=== PATIENT | female | born 1990 | race Caucasian/White ===

== ENCOUNTER 2020-04-16 16:14 | Emergency (ER) | payer MEDICAID ==
[~2020-04-16] VITALS: Ht 172.7 cm; Wt 56.7 kg
--- NOTE | 2020-04-16 16:39 | NUR ---
ED Nurse Note: urine sent to lab
--- NOTE | 2020-04-16 17:30 | NUR ---
ED Nurse Note:pt. came with possible UTI symptoms, exam was done by ER PA
[2020-04-16 17:38] LABS: APPEARANCE,URINE CLEAR; BILIRUBIN, URINE NEGATIVE (NEGATIVE); GLUCOSE, URINE (UA) NEGATIVE (NEGATIVE); KETONES,URINE 1+ (NEGATIVE); LEUKOCYTE ESTERASE ,URINE 1+ (NEGATIVE); NITRITE,URINE NEGATIVE (NEGATIVE); PH,URINE 5 (4.5-8.0); PROTEIN,URINE NEGATIVE (NEGATIVE); UROBILINOGEN,URINE NORMAL MG/DL (0.0-1.0)
[2020-04-16 17:40] LABS: COLOR,URINE YELLOW
[2020-04-16 18:06] VITALS: BP 124/79
--- NOTE | 2020-04-16 18:08 | Emergency Room Report ---
History of Present Illness General Chief Complaint: Female Urogenital Problems Source: Patient Present Illness HPI 29-year-old female with no signal past medical history here expressing concerns about a possible STD. Patient reports that she was last sexually active 2 months ago and started having blisters in the vaginal area 2 weeks ago. Patient scared that it might be herpes. Patient also shaves the area. Also reports that she felt some scarification at the crease of her lips today and got very anxious. Denies any vaginal discharge and urinary symptoms. Denies . Denies any burning sensation in the area of the lesion. Denies any tingling prior to the appearance of the blister. No grouped vesicular rash on erythematous base noted appears to be secondary to contact eczema with infection on top most likely secondary to staph infection. 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 COVID-19 Screening: Negative COVID-19 COVID-19 Testing Source: 2 weeks ago Patient History Past Medical History: see triage record Past Surgical History: none Pertinent Family History: none Last Menstrual Period: last week Now: No Immunizations: UTD Reviewed Nursing Documentation: PMH: Agreed; PSxH: Agreed Nursing Documentation-PMH Past Medical History: No Stated History Review of Systems All Other Systems: negative except mentioned in HPI Physical Exam Vital Signs Date Time Temp Pulse Resp B/P (MAP) Pulse Ox O2 Delivery O2 Flow Rate FiO2 04/16/20 16:28 98.4 109 20 124/79 (94) 99 Room Air Sp02 EP Interpretation: reviewed, normal General Appearance: no apparent distress, alert, GCS 15, non-toxic Head: normocephalic, atraumatic Eyes: bilateral eye normal inspection, bilateral eye PERRL ENT: hearing grossly normal, normal pharynx, no angioedema, normal voice Neck: full range of motion, supple/symm/no masses Respiratory: chest non-tender, lungs clear, normal breath sounds, speaking full sentences Cardiovascular #1: regular rate, rhythm, no edema Gastrointestinal: normal bowel sounds, non tender, soft, non-distended, no guarding, no rebound Rectal: deferred Genitourinary: no CVA tenderness, other - Contact eczema noted around vaginal labia majora and skin cut noted appears to be secondary to either razor cut or due to scratching with superimposed staph infection. Musculoskeletal: back normal Neurologic: alert, motor strength/tone normal, oriented x3, sensory intact, responsive, speech normal Psychiatric: judgement/insight normal, memory normal, mood/affect normal, no suicidal/homicidal ideation Skin: rash - Impetigo crease of left leg Lymphatic: no adenopathy Medical Decision Making PA Attestation ALL Diagnosis and treatment plan reviewed and discussed with my supervising physician Dr. Shah Diagnostic Impression: Primary Impression: UTI (urinary tract infection) Additional Impressions: Skin infection Blister (nonthermal) of vagina and vulva, initial encounter Impetigo any site ER Course 29-year-old female with no signal past medical history here expressing concerns about a possible STD. Patient reports that she was last sexually active 2 months ago and started having blisters in the vaginal area 2 weeks ago. Patient scared that it might be herpes. Patient also shaves the area. Also reports that she felt some scarification at the crease of her lips today and got very anxious. Denies any vaginal discharge and urinary symptoms. Denies . Denies any burning sensation in the area of the lesion. Denies any tingling prior to the appearance of the blister. No grouped vesicular rash on erythematous base noted appears to be secondary to contact eczema with infection on top most likely secondary to staph infection. Ddx considered but are not limited to: UTI, herpes, staph infection of the vaginal canal, Vital signs: are WNL, pt. is afebrile H&PE are most consistent with: Impetigo of the mouth, skin infection secondary to superimposed staph infection vaginal area, possible herpes infection, UTI ORDERS: UA, urine cx, urine , Bactrim DS to cover both staph infection and UTI, acyclovir per patient request to be covered for possible herpes, mupirocin ointment ED INTERVENTIONS: None required at this time. DISCHARGE: At this time pt. is stable for d/c to home. Will provide printed patient care instructions, and any necessary prescriptions. Care plan and follow up instructions have been discussed with the patient prior to discharge. Gave a list of STD clinics medication as directed, follow-up primary care provider, if worsening symptoms return to the emergency room. Patient is aware that STDs are not routinely tested here at the ED and patient agrees with the treatment above Last Vital Signs Date Time Temp Pulse Resp B/P (MAP) Pulse Ox O2 Delivery O2 Flow Rate FiO2 04/16/20 16:28 98.4 109 20 124/79 (94) 99 Room Air Disposition: HOME, SELF-CARE Condition: Stable Scripts Trimethoprim/Sulfamethoxazole 160/800* (BACTRIM DS TABLET*) 1 Each Tablet 1 TAB ORAL TWICE A DAY for 7 Days, #14 TAB Prov: Jany Bazan 04/16/20 Mupirocin* (MUPIROCIN*) 22 Gm Oint...g. 1 APPLIC TOPIC THREE TIMES A DAY, #22 GM Prov: Jany Bazan 04/16/20 Acyclovir* (ACYCLOVIR*) 400 Mg Tablet 400 MG ORAL THREE TIMES A DAY for 5 Days, #15 TAB Prov: Jany Bazan 04/16/20 Patient Instructions: Urinary Tract Infection Additional Instructions: Take medication as directed, follow-up primary care provider, follow-up with STD clinics, worsening symptoms return to the emergency Jany Bazan Apr 16, 2020 18:08
[2020-04-16] MEDS ORDERED: ACYCLOVIR400 MG ORAL (18:12)
[2020-04-16] MEDS ORDERED: BACTRIM DS TAB1 EAC1 ORAL (18:12)
[2020-04-16] MEDS ORDERED: MUPIROCIN22 GM TOPIC (18:12)
[2020-04-16 18:30] VITALS: BP 124/79
--- NOTE | 2020-04-16 18:30 | NUR ---
ED Nurse Note: Pt cleared by health care Provider for discharge. DC instructions/prescription was given and explained to pt and verbalized understanding of teachings. All medical deviecs such as ID band removed. Pt is AAO x4, ambulatory and left with all personal belongings.
== END 2020-04-16 18:30 | disposition home or self-care (01) ==
LOC: EMR 17:06
DX: S30.824A Blister (nonthermal) of vagina and vulva, initial encounter (principal); X58.XXXA Exposure to other specified factors, initial encounter; Y92.9 Unspecified place or not applicable; N39.0 Urinary tract infection, site not specified; L08.9 Local infection of the skin and subcutaneous tissue, unspecified; L01.00 Impetigo, unspecified; L25.9 Unspecified contact dermatitis, unspecified cause
CPT/HCPCS: 81003; 81025; Z7502; 99282

== ENCOUNTER 2020-04-26 13:25 | Emergency (ER) | payer MEDICAID, OTHER ==
[~2020-04-26] VITALS: Ht 172.7 cm; Wt 56.7 kg
[~2020-04-26 13:25] MED LIST: ACYCLOVIR400 MG ORAL; BACTRIM DS TAB1 EAC1 ORAL; MUPIROCIN22 GM TOPIC
[2020-04-26 13:36] VITALS: BP 104/65
--- NOTE | 2020-04-26 14:03 | Emergency Room Report ---
History of Present Illness General Chief Complaint: Allergic Reaction Source: Patient Present Illness HPI 29-year-old female presents to the emergency department complaining of nonpainful, mildly itchy rash that also has a tingling sensation generalized over her body x3 days. She also noted or swollen tender lymph nodes in the neck, occipital and groin area. Pt. denies fevers or chills. Denies lesions/rashes elsewhere on the body. Denies new medications or body washes or creams. Denies swelling of the lips, tongue , throat or airway. Denies wheezing, or shortness of breath. Denies recent travel, recent illness or ill contacts. denies blisters, oral lesions, or sloughing of the skin. She reports familial hx of Lupus. She also reports that recently she believes she had a herpes outbreak that she is still awaiting her results for. She reports small cold sore on the corner of her mouth that resolved. Pt. denies significant pmhx otherwise. 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 COVID-19 Screening: Negative COVID-19 COVID-19 Testing Source: Last , [facility] Patient History Past Medical History: see triage record Past Surgical History: none Pertinent Family History: none Now: No Reviewed Nursing Documentation: PMH: Agreed; PSxH: Agreed Nursing Documentation-PMH Past Medical History: No Stated History Review of Systems All Other Systems: negative except mentioned in HPI Physical Exam Vital Signs Date Time Temp Pulse Resp B/P (MAP) Pulse Ox O2 Delivery O2 Flow Rate FiO2 04/26/20 13:29 97.5 95 18 104/65 (78) 100 Room Air Sp02 EP Interpretation: reviewed, normal General Appearance: no apparent distress, alert, GCS 15, non-toxic Head: normocephalic, atraumatic Eyes: bilateral eye normal inspection, bilateral eye PERRL ENT: hearing grossly normal, normal voice, other - no oral lesions Neck: full range of motion, other - no stridor Respiratory: chest non-tender, lungs clear, normal breath sounds, speaking full sentences Cardiovascular #1: regular rate, rhythm, normal capillary refill Musculoskeletal: back normal, normal range of motion, gait/station normal, non- tender Neurologic: alert, motor strength/tone normal, oriented x3, sensory intact, responsive, speech normal Psychiatric: judgement/insight normal Skin: rash - diffuse rash consisting of erythematous papules that yeimi. including face. Not lesions on palms or soles.No blisters or vesicles. No wheezing, or stridor. Lymphatic: other - bilateral occipital and cervical LAD Medical Decision Making PA Attestation Dr. Gar is my supervising Physician whom patient management has been discussed with. Diagnostic Impression: Primary Impression: Rash and nonspecific skin eruption ER Course 29-year-old female presents to the emergency department complaining of nonpainful, mildly itchy rash that also has a tingling sensation generalized over her body x3 days. She also noted or swollen tender lymph nodes in the neck, occipital and groin area. Pt. denies fevers or chills. Denies lesions/rashes elsewhere on the body. Denies new medications or body washes or creams. Denies swelling of the lips, tongue , throat or airway. Denies wheezing, or shortness of breath. Denies recent travel, recent illness or ill contacts. denies blisters, oral lesions, or sloughing of the skin. She reports familial hx of Lupus. She also reports that recently she believes she had a herpes outbreak that she is still awaiting her results for. She reports small cold sore on the corner of her mouth that resolved. Pt. denies significant pmhx otherwise. Ddx considered but are not limited to cellulitis, scabies, shingles, varicella, dermatitis, urticaria, eczema, tinea, viral exanthem, SJS Vital signs: are WNL, pt. is afebrile H&PE are most consistent with diffuse rash consisting of erythematous papules that yeimi. including face. Not lesions on palms or soles.No blisters or vesicles. No wheezing, or stridor. No evidence of acute impending airway from eyes or anaphylaxis. ORDERS: none required at this time, the diagnosis is clinical ED INTERVENTIONS: None required at this time. I discussed with this patient conservative treatment in addition to project management director and java software architect follow-up as well as dermatology. Discussed with patient to return immediately to the emergency department with any respiratory symptoms such as wheezing, cough, swelling of the lips, tongue or throat. DISCHARGE: At this time pt. is stable for d/c to home. Will provide printed patient care instructions, and any necessary prescriptions. Care plan and follow up instructions have been discussed with the patient prior to discharge. Last Vital Signs Date Time Temp Pulse Resp B/P (MAP) Pulse Ox O2 Delivery O2 Flow Rate FiO2 04/26/20 13:36 97.5 95 18 104/65 100 Room Air Disposition: HOME, SELF-CARE Condition: Stable Referrals: Marina BROCK,REFERRING (PCP) Patient Instructions: Allergies, Rash Additional Instructions: Take medications as directed. Do not drink alcohol, drive, or operate heavy machinery while taking Benadryl as this may cause drowsiness. Follow up with a Primary Care Provider in 3-5 days, even if your symptoms have resolved. Recommend DERMATOLOGY, EMERGENCY MEDICAL SERVICE MANAGER, and MEDICATION TECH evaluation f Return sooner to ED if new symptoms occur, or current symptoms become worse. - Please note that this Emergency Department Report was dictated using Task Messengertreasury manager technology software, occasionally this can lead to erroneous entry secondary to interpretation by the dictation equipment. Fartun Patel Apr 26, 2020 14:03
[2020-04-26] MEDS ORDERED: BENADRYL ALLERG25 M1 PO (14:04)
[2020-04-26 14:17] VITALS: BP 104/65
== END 2020-04-26 14:17 | disposition home or self-care (01) ==
LOC: EMR 13:46
DX: R21 Rash and other nonspecific skin eruption (principal)
CPT/HCPCS: 99282